=== PATIENT | male | born 1960 | race Caucasian/White ===

== ENCOUNTER 2020-04-06 11:08 | Day surgery (SDC) | payer MEDICARE, MEDICAID ==
[~2020-04-06] VITALS: Ht 165.1 cm; Wt 74.4 kg
[~2020-04-06 11:08] MED LIST: BUPIVACAINE/PF 0.5% ONE; EPINEPHRINE 1 MG/ML, 1ML ONE
[2020-04-06] MEDS ORDERED: LACTATED RINGERS 1,000 ML IV SCH (11:32)
[2020-04-06] MEDS ORDERED: MIDAZOLAM 1 MG/ML, 2ML ONE (11:37)
[2020-04-06] MEDS ORDERED: FENTANYL PF 250 MCG/5ML ONE (11:37)
[2020-04-06] MEDS ORDERED: NO MEDS PER PATIENT (11:45)
[2020-04-06 11:46] VITALS: BP 126/84
[2020-04-06] MEDS ORDERED: CHLORHEXIDINE 15 ML UDC MM ONE (12:00)
[2020-04-06] MEDS ORDERED: ROCURONIUM 10MG/ML,5ML ONE (12:07)
[2020-04-06] MEDS ORDERED: ONDANSETRON 2MG/ML, 2ML ONE (12:07)
[2020-04-06] MEDS ORDERED: CEFAZOLIN 1,000 MG ONE (12:07)
[2020-04-06] MEDS ORDERED: PROPOFOL 10 MG/ML, 20ML ONE (12:07)
[2020-04-06] MEDS ORDERED: DEXAMETHASONE 4 MG/ML, 1ML ONE (12:07)
[2020-04-06] MEDS ORDERED: SUCCINYLCHOLINE 20 MG/ML, 10ML ONE (12:07)
[2020-04-06] MEDS ORDERED: hydrALAzine 20 MG/ML, 1ML IV PRN (13:00)
[2020-04-06] MEDS ORDERED: FENTANYL PF 100 MCG/2ML IV PRN (13:00)
[2020-04-06] MEDS ORDERED: ONDANSETRON 2MG/ML, 2ML IVPush PRN (13:00)
[2020-04-06] MEDS ORDERED: LABETALOL 5MG/ML, 20ML IV PRN (13:00)
[2020-04-06] MEDS ORDERED: PROMETHAZINE 25 MG/ML, 1ML IV PRN (13:00)
[2020-04-06] MEDS ORDERED: MEPERIDINE/PF 25MG/0.5ML IVPush PRN (13:00)
[2020-04-06] MEDS ORDERED: METOCLOPRAMIDE 5 MG/ML, 2ML IV PRN (13:00)
[2020-04-06] MEDS ORDERED: ALBUTEROL SULFATE 2.5 MG/3 ML NPPB PRN (13:00)
[2020-04-06] MEDS ORDERED: DIAZEPAM 5 MG/ML, 2ML IV PRN ×2 (13:00)
[2020-04-06] MEDS ORDERED: OXYcodone 5 MG/5 ML ORAL.SOL UDC PO PRN (13:00)
[2020-04-06] MEDS ORDERED: KETOROLAC 30 MG/1 ML IV PRN (13:00)
[2020-04-06] MEDS ORDERED: HYDROmorphone 1 MG/ML, 1ML INJ IV PRN (13:00)
== END 2020-04-06 15:00 | disposition home or self-care (01) ==
LOC: OUT 11:08
PROVIDERS: ATTEND Podiatrist Foot & Ankle Surgery
DX: M19.272 Secondary osteoarthritis, left ankle and foot (principal); Z20.828 Contact with and (suspected) exposure to other viral communicable diseases; M25.772 Osteophyte, left ankle; M21.072 Valgus deformity, not elsewhere classified, left ankle; G89.18 Other acute postprocedural pain; J44.9 Chronic obstructive pulmonary disease, unspecified; Z79.899 Other long term (current) drug therapy; Z87.891 Personal history of nicotine dependence
CPT/HCPCS: 28725; 36415; 64445; 64447; 73620; 87635; C1713; C1762; J0330; J0690; J1100; J2250; J2405; J2704; J3010; J7120; 76000; J0171